=== PATIENT | female | born 1955 | race Asian ===

== ENCOUNTER 2017-02-07 10:40 | Emergency (ER) | payer OTHER ==
[2017-02-07 10:50] VITALS: TEMP 97.4; BMI 28.0
--- NOTE | 2017-02-07 11:28 | PDOC ---
History of Present Illness - General History Source: Patient Exam Limitations: No Limitations - History of Present Illness Initial Comments: 02/07/17 16:15 The patient is a 61-year-old female, with a significant past medical history of HTN, who presents to the ED with one week of dysuria and hematuria. Pt states that her symptoms began a week ago but resolved after a few days. Her symptoms recurred this morning when the patient woke up at 7:30 AM to use the bathroom. She reports frequency and mild suprapubic pain and has been urinating more often in the last few hours. She rates the pain a 6/10 in severity when she is not urinating, but it worsens to a 10/10 when she is urinating. She experienced similar symptoms 3 years ago and visited her [facility] doctor (Dr. Wolfe). Pt was diagnosed with a urinary tract infection and she was discharged with a week course of antibiotics. Her symptoms resolved after completing the medication. She reports taking Advil this morning at 8:30 AM with no relief of her symptoms. She denies any fever, chills, nausea, vomiting, diarrhea, or abdominal pain. She denies any shortness of breath or chest pain. [facility]: Dr. Wolfe PCP: Dr. Carolyne Bhandari Hx: She denies any tobacco use, alcohol use, or drug use. <Meaghan Buck - Last Filed: 02/07/17 16:15> <Fina Bond - Last Filed: 02/08/17 19:18> - General Chief Complaint: Vaginal Bleeding Stated Complaint: PAIN Time Seen by Provider: 02/07/17 11:16 Past History <Meaghan Buck - Last Filed: 02/07/17 16:15> - Past Medical History COPD: No HTN: Yes - Suicide/Smoking/Psychosocial Hx Smoking History: Never smoked Hx Alcohol Use: No Drug/Substance Use Hx: No Substance Use Type: None <Fina Bond - Last Filed: 02/08/17 19:18> - Past Medical History Allergies/Adverse Reactions: Allergies Allergy/AdvReac Type Severity Reaction Status Date / Time Penicillins Allergy Verified 02/07/17 10:46 Home Medications: Ambulatory Orders Sulfamethoxazole/Trimethoprim [Bactrim Ds -] 1 tab PO BID #5 tablet 12/17/17 Review of Systems - Review of Systems Able to Perform ROS?: Yes Comments:: 02/07/17 16:16 GENERAL/CONSTITUTIONAL: No fever or chills. No weakness. HEAD, EYES, EARS, NOSE AND THROAT: No change in vision. No ear pain or discharge. No sore throat. GASTROINTESTINAL: +mild suprapubic pain. No nausea, vomiting, diarrhea or constipation. GENITOURINARY: +dysuria, frequency, hematuria. CARDIOVASCULAR: No chest pain or shortness of breath. RESPIRATORY: No cough, wheezing, or hemoptysis. MUSCULOSKELETAL: No joint or muscle swelling or pain. No neck or back pain. SKIN: No rash NEUROLOGIC: No headache, vertigo, loss of consciousness, or change in strength/ sensation. ENDOCRINE: No increased thirst. No abnormal weight change. HEMATOLOGIC/LYMPHATIC: No anemia, easy bleeding, or history of blood clots. ALLERGIC/IMMUNOLOGIC: No hives or skin allergy. <Meaghan Buck - Last Filed: 02/07/17 16:15> *Physical Exam - Vital Signs Last Vital Signs Temp Pulse Resp BP Pulse Ox 97.4 F L 75 20 157/103 99 02/07/17 10:42 02/07/17 10:42 02/07/17 10:42 02/07/17 10:42 02/07/17 10:42 - Physical Exam Comments: 02/07/17 16:16 GENERAL: Awake, alert, and fully oriented, in no acute distress HEAD: No signs of trauma EYES: PERRLA, EOMI, sclera anicteric, conjunctiva clear ENT: Auricles normal inspection, hearing grossly normal, nares patent, oropharynx clear without exudates. Moist mucosa NECK: Normal ROM, supple, no lymphadenopathy, JVD, or masses LUNGS: Breath sounds equal, clear to auscultation bilaterally. No wheezes, and no crackles HEART: Regular rate and rhythm, normal S1 and S2, no murmurs, rubs or gallops ABDOMEN: Soft, nontender, normoactive bowel sounds. No guarding, no rebound. No masses. No CVAT EXTREMITIES: Normal range of motion, no edema. No clubbing or cyanosis. No cords, erythema, or tenderness BACK: No midline spinal tenderness in cervical/thoracic/lumbar region NEUROLOGICAL: Normal speech, cranial nerves intact, negative pronator drift, 5/ 5 strength in all 4 extremities, normal sensation to light touch in all 4 extremities, normal cerebellar exam, normal gait, normal reflexes and tone SKIN: Warm, Dry, normal turgor, no rashes or lesions noted. <HeberMeaghan - Last Filed: 02/07/17 16:15> - Vital Signs Last Vital Signs Temp Pulse Resp BP Pulse Ox 97.4 F L 75 20 157/103 99 02/07/17 10:42 02/07/17 10:42 02/07/17 10:42 02/07/17 10:42 02/07/17 10:42 <Fina Bond - Last Filed: 02/08/17 19:18> ED Treatment Course - LABORATORY CBC & Chemistry Diagram: 02/07/17 11:55 02/07/17 11:55 <Meaghan Buck - Last Filed: 02/07/17 16:15> - LABORATORY CBC & Chemistry Diagram: 02/07/17 11:55 02/07/17 11:55 <Fina Bond - Last Filed: 02/08/17 19:18> Medical Decision Making - Medical Decision Making 02/07/17 11:49 61-year-old female presents with hematuria and dysuria. Patient denies vaginal bleeding. Vitals remarkable initially for high blood pressure however repeat blood pressure on my exam is 148/80. Likely cystitis. WIll check basic labs and UA and reassess. 02/07/17 12:50 LFTs mildly elevated. Abd exam benign to no RUQ or epigastric ttp. Pt denies RUQ pain. She reports Dr. Barfield is aware of her LFTs being slightly elevated and is working her up as an outpt. Urinalysis with 400+ WBCs. Likely consistent with UTI. Patient has no previous microbiology, has an ALLERGY to penicillin. Will treat with Bactrim and discharge to follow-up with her primary doctor. I advised the patient to follow up within 1 week to ensure that the hematuria resolves and discussed that persistent hematuria could be a sign of cancer, the patient expressed understanding and will follow-up with her primary doctor within 1 week. I discussed the physical exam findings, ancillary test results and final diagnoses with the patient. I answered all of the patient's questions. The patient was satisfied with the care received and felt comfortable with the discharge plan and treatment plan. The patient will call their primary care physician within 24 hours to arrange follow-up and will return to the Emergency Department with any new, persistent or worsening symptoms. <Fina Bond - Last Filed: 02/08/17 19:18> *DC/Admit/Observation/Transfer - Attestations Scribe Attestion: 02/07/17 16:18 Documentation prepared by Meaghan Buck, acting as medical data entry clerk for Fina Bond MD. <Meaghan Buck - Last Filed: 02/07/17 16:15> - Discharge Dispostion Admit: No - Attestations Physician Attestion: 02/07/17 12:54 I, Dr. Fina Bond MD, attest that this document has been prepared under my direction and personally reviewed by me in its entirety. I further attest, that it accurately reflects all work, treatment, procedures and medical decision -making performed by me. <Fina Bond - Last Filed: 02/08/17 19:18> Diagnosis at time of Disposition: Cystitis - Discharge Dispostion Disposition: HOME Condition at time of disposition: Stable - Prescriptions Prescriptions: Sulfamethoxazole/Trimethoprim [Bactrim Ds -] 1 tab PO BID #5 tablet - Referrals Referrals: Carlos Barfield MD [Primary Care Provider] - - Patient Instructions Printed Discharge Instructions: DI for Acute Cystitis Additional Instructions: Follow-up with Dr. Barfield within 1 week. As discussed, there is blood in your urine analysis and while this is likely due to an infection, you must follow up for repeat urine analysis to ensure clearance of the blood. Bleeding in the urine persistently could be a sign of cancer. Also, have Dr. Barfield follow up on your liver function tests as discussed. Return to the emergency department if you have any new, worsening or concerning symptoms. - Post Discharge Activity
[2017-02-07 12:10] LABS: EOSINOPHIL 1.8 % (0-4.5); MCH 30.6 pg (25.7-33.7); MCHC 33.5 g/dl (32.0-36.0); MEAN CELL VOLUME 91.3 fl (80-96); MEAN PLT VOLUME 7.4 fl (7.5-11.1); NEUTROPHILS 54.7 % (42.8-82.8); PLATELET COUNT 380 K/MM3 (134-434); RDW 12.7 % (11.6-15.6); WHITE BLOOD COUNT 7.4 K/mm3 (4.0-10.0)
[2017-02-07 12:11] LABS: URINE APPEARANCE SLCLOUDY; URINE BILIRUBIN NEGATIVE (NEGATIVE); URINE BLOOD 3+ (NEGATIVE); URINE COLOR YELLOW; URINE GLUCOSE (UA) NEGATIVE (NEGATIVE); URINE KETONE NEGATIVE (NEGATIVE); URINE NITRITE NEGATIVE (NEGATIVE); URINE UROBILINOGEN NEGATIVE mg/dL (0.2-1.0)
[2017-02-07 12:12] LABS: URINE LEUK ESTERASE 3+ (NEGATIVE); URINE PROTEIN 1+ (NEGATIVE)
[2017-02-07 12:27] LABS: URINE RBC 42 /hpf (0-3); URINE WBC 435 /hpf (3-5)
[2017-02-07] MEDS ORDERED: SULFAMETHOXAZOLE/TRIMETHOPRIM 800MG/160MG D.S. TABLET PO ONE (12:44)
[2017-02-07 12:49] LABS: ANION GAP 5 (8-16); CALCIUM 9.3 mg/dL (8.5-10.1); CO2 28 mmol/L (21-32); GLUCOSE,RANDOM 108 mg/dL (74-106); SGPT/ALT 102 U/L (12-78)
[2017-02-07 12:51] LABS: ALK PHOS 92 U/L (45-117); BILIRUBIN,TOTAL 0.7 mg/dL (0.2-1.0); CREATININE 0.6 mg/dL (0.55-1.02)
[2017-02-07] MEDS ORDERED: SULFAMETHOXAZOLE/TRIMETHOPRIM 800MG/160MG D.S. TABLET ONE (12:51)
[2017-02-07 12:54] LABS: SGOT/AST 77 U/L (15-37)
[2017-02-07 13:20] VITALS: BP 149/89; PULSE 80
[2017-02-07 19:45] LABS: URINE LEUK ESTERASE 3+ (NEGATIVE)
== END 2017-02-07 13:19 | disposition home or self-care (01) ==
LOC: JER 10:40
DX: N30.00 Acute cystitis without hematuria (principal); I10 Essential (primary) hypertension
CPT/HCPCS: 36415; 80053; 81003; 81015; 85025; 87086; 87186; 99283-25